=== PATIENT | male | born 1965 | race Caucasian/White ===

== ENCOUNTER 2020-08-05 23:57 | Emergency (ER) | payer BC, MEDICAID ==
[~2020-08-05] VITALS: Ht 185.4 cm; Wt 116.0 kg
[~2020-08-05 23:57] MED LIST: ALBU8.5H6 INH; ASPI325T8 PO; BUDE10.2 INH; CLOP75TA57 PO; CRESTOR40 MG PO; GABA-587 PO; ISOS30TA; MELA10CA PO; RANI-376 PO; TRAZ300T2 PO
--- NOTE | 2020-08-06 00:13 | PHYS DOC ---
Past History Past Medical History: Arrhythmia, CAD, DC Past Medical History COVID , - Oxygen dependent 2 lit. Past Surgical History: Knee Replacement, Pacemaker, Other Past Surgical History Shoulder Rt x 2, Hx. trauma repair- Lt arm Smoking: Non-smoker Alcohol Use: None Drug Use: None General Adult EDM: Chief Complaint: SHOULDER INJURY HPI: HPI: ". I was helping a relative lay down some stalks for bedding.. and this high pressure hydraulic line had a pinhole leak and it got me in my right shoulder... It is the same shoulder I have had surgical repair twice on... This area is really tender and swollen... Patient is a 54 year old male who presents with above hx and complaints right shoulder hydraulic pressure injection injury. Patient has approximately 6 to 8 cm circular area with 2 injection-like clemens. Area is somewhat erythemic and very tender to touch. There is older surgery scars from 2 surgical repairs of rotator cuff. Patient states injury just occurred. Patient is visiting from [place]. Patient has past medical history of coronary artery disease and pacer placement for dysrhythmia 2 yrs ago.. Patient has a past traumatic history of a machine entanglement of left arm. Requiring surgical repair. Patient has history of Covid in April and as sequela has been oxygen dependent. Patient reports recent travel from [place] to his relatives here locally. Patient denies any history of immunosuppression.. Patient states his last tetanus approximately 2 years ago. Review of Systems: Review of Systems: Constitutional: Denies fever or chills Eyes: Denies change in visual acuity HENT: Denies nasal congestion or sore throat Respiratory: Denies cough or shortness of breath Cardiovascular: Denies chest pain or edema GI: Denies abdominal pain, nausea, vomiting, bloody stools or diarrhea : Denies dysuria Musculoskeletal: Complains of right shoulder pain from hydraulic injection Integument: Denies rash Neurologic: Denies headache, focal weakness or sensory changes Endocrine: Denies polyuria or polydipsia Lymphatic: Denies swollen glands Psychiatric: Denies depression or anxiety Family History: Family History: Noncontributory to presentation Current Medications: Current Meds: See nursing for home meds Allergies: Allergies: Allergies Coded Allergies Type Severity Reaction Last Updated Verified acetaminophen Allergy Severe Anaphylaxis 08/06/20 Yes ibuprofen Allergy Severe Anaphylaxis 08/06/20 Yes ketorolac Allergy Severe Anaphylaxis 08/06/20 Yes naproxen Allergy Severe Anaphylaxis 08/06/20 Yes chicken derived Allergy Intermediate CHICKEN AND TURKEY 08/06/20 Yes fish derived Allergy Intermediate FISH 08/06/20 Yes Physical Exam: PE: Constitutional: Moderate acute distress, non-toxic appearance. [] HENT: Normocephalic, atraumatic, bilateral external ears normal, oropharynx moist, no oral exudates, nose normal. [] Eyes: PERRLA, EOMI, conjunctiva normal, no discharge. [] Neck: Normal range of motion, no tenderness, supple, no stridor. [] Cardiovascular:Heart rate regular rhythm, no murmur [. PMI to left Lungs & Thorax: Bilateral breath sounds equal apex with scattered wheezes and crackles bilaterally on auscultation [. Patient has] pacer scar on left Abdomen: Bowel sounds normal, soft, no tenderness, no masses, no pulsatile masses. Obese. Old surgical scar Skin: Warm, dry, no erythema, no rash. Right shoulder area has 2 injection clemens. An area of approximately 8 cm that is injected Back: No tenderness, no CVA tenderness. [] Extremities: No tenderness, no cyanosis, no clubbing, ROM intact, no edema. Arthritic changes. Except findings, complaints in right shoulder as per HPI. Extensive scarring both arms. Neurologic: Alert and oriented X 3, moves all extremities on request, does have distal sensory., no focal deficits noted. [] Psychologic: Affect anxious, judgement normal, mood normal. [] EKG: EKG: My interpretation of EKG shows a sinus rhythm at 80 bpm. There is left axis. No patient PACs appreciated on current EKG. there is some wavering baseline due to movement. But no contralateral changes consistent with STEMI [] Radiology/Procedures: Radiology/Procedures: [][address] [address] IMAGING REPORT Signed PATIENT: FÉLIX CONTE ACCOUNT: [id number] : 1965 LOCATION: ER AGE: 54 SEX: M EXAM STATUS: REG ER ORD. PHYSICIAN: MYRIAM TERRY MD REASON: oil injection Rt. shoulder PROCEDURE: SHOULDER 2+V RIGHT EXAM: 1. CT right shoulder without contrast. 2. Right shoulder 3 views. 3. Chest one view. HISTORY: Trauma, high pressure injection injury of industrial grease. TECHNIQUE: 3 views of the right shoulder and a frontal view of the chest are obtained. CT of the right shoulder was performed without intravenous contrast. One or more of the following individualized dose reduction techniques were utilized for this examination: 1. Automated exposure control. 2. Adjustment of the mA and/or kV according to patient size. 3. Use of iterative reconstruction technique. COMPARISON: Today's radiograph. FINDINGS: One tiny focus of subcutaneous gas is noted on axial image 54. This measures <2 mm. No additional subcutaneous gas, macroscopic skin injury, or macroscopic soft tissue collection is present. There is subcutaneous scarring along the anterior and lateral aspect of the right shoulder, likely reflecting prior surgery. No fractures are identified. There are changes of rotator cuff repair. The rot ator cuff appears grossly intact though atrophic. CT sensitivity for rotator cuff tears is limited. There is fatty atrophy of the supraspinatus, infraspinatus and subscapularis muscles. Glenohumeral joint spaces and alignment are maintained. The acromioclavicular joint is unremarkable for patient age. The acromion is type II. There are interstitial and groundglass opacities throughout the visualized portions of the right lung. These are better appreciated by CT than plain radiographs. By radiographs, there appears to be only mild bibasilar atelectasis. There is no pneumothorax or pleural effusion. The heart is not enlarged. A coronary stent is noted on the left. A left-sided pacer/defibrillator has its leads in the right atrium and right ventricle. IMPRESSION: 1. One tiny focus of subcutaneous gas is noted. No macroscopic soft tissue collection. 2. Groundglass and interstitial opacities throughout the right lung may reflect atypical pneumonia or interstitial lung disease. Correlate for history of recent infection. Electronically signed by: Darrick Song MD (08/06/2020 3:26 AM) [facility] DICTATED AND SIGNED BY: MAE SONG MD DATE: 08/06/20311 CC: MYRIAM TERRY MD; NON,STAFF ~MTH0 0 Heart Score: HEART Score for Chest Pain: HEART Score for Chest Pain Response (Comments) Value History Moderately Suspicious 1 ECG Nonspecific Repolarizatio 1 Age >45 - < 65 1 Risk Factors 1 or 2 Risk Factors 1 Troponin >1-<3x Normal Limit 1 Total 5 Risk Factors: Risk Factors: DM, Current or recent (<one month) smoker, HTN, HLP, family history of CAD, obesity. Risk Scores: Score 0 - 3: 2.5% MACE over next 6 weeks - Discharge Home Score 4 - 6: 20.3% MACE over next 6 weeks - Admit for Clinical Observation Score 7 - 10: 72.7% MACE over next 6 weeks - Early Invasive Strategies Course & Med Decision Making: Course & Med Decision Making Pertinent Labs and Imaging studies reviewed. (See chart for details) Discussed presentation, testing and tx plan with Dr. Leticia gómez- at [facility], 0045- Advised pt. should go to burn center, or trauma center for surgical exploration. Discussed presentation, testing and tx plan with transfer- 0230 hrs. student services coordinator advised the transfer will be discussed attending. Pt. accepted at - Dr. Delgado. Impression: 1. Rt. Shoulder Injection- High Pressure hydraulic line 2. Post COVID Apr 23, sequela of oxygen dependent 3. History of coronary artery disease and dysrhythmia [] Dragon Disclaimer: Dragon Disclaimer: This electronic medical record was generated, in whole or in part, using a voice recognition dictation system. Dragon Disclaimer This chart was dictated in whole or in part using Voice Recognition software in a busy, high-work load, and often noisy Emergency Department environment. It may contain unintended and wholly unrecognized errors or omissions. MYRIAM TERRY MD Aug 06, 2020 00:13
[2020-08-06] MEDS ORDERED: MORPHINE SULFATE 10 MG/ML SYRINGE. SQ ONE ×2 (00:45→03:45)
[2020-08-06] MEDS ORDERED: IV RINGERS SOLUTION,LACTATED 1,000 ML IV SCH (01:00)
[2020-08-06 01:25] LABS: BASO # 0.1 x10^3/uL (0.0-0.2); BASO % 1 % (0-3); EOS # 0.1 x10^3/uL (0.0-0.7); EOS % 2 % (0-3); HEMATOCRIT 43.2 % (39.0-53.0); HEMOGLOBIN 14.4 g/dL (13.0-17.5); LYMPH # 1.1 x10^3/uL (1.0-4.8); LYMPH % 19 % (24-48); MEAN CORPUSCULAR HEMOGLOBIN 31 pg (25-35); MEAN CORPUSCULAR HGB CONC 33 g/dL (31-37); MEAN CORPUSCULAR VOLUME 94 fL (79-100); MONO # 0.5 x10^3/uL (0.0-1.1); MONO % 9 % (0-9); NEUT # 4.1 x10^3uL (1.8-7.7); NEUT % 69 % (31-73); PLATELET COUNT 251 x10^3/uL (140-400); RED BLOOD COUNT 4.62 x10^6/uL (4.30-5.70); RED CELL DISTRIBUTION WIDTH 12.9 % (11.5-14.5)
[2020-08-06 01:32] LABS: CALCIUM 8.7 mg/dL (8.5-10.1); CREATININE 1.2 mg/dL (0.7-1.3); GFR 62.9
--- NOTE | 2020-08-06 01:36 | EKG ---
[facility] ED [facility] [address] [place] [id number] Test Date: 2020-08-06 Test Time: 00:54:14 Pat Name: FÉLIX CONTE Department: Room: Gender: M Hr Operations Advisor: Nelly : 1965 Requested By: MYRIAM TERRY Order Number: [id number] Reading MD: Measurements Intervals [place] Rate: 80 P: 34 MS: 198 QRS: -17 QRSD: 100 T: 142 QT: 394 QTc: 458 Interpretive Statements SINUS RHYTHM LEFTWARD AXIS R-S TRANSITION ZONE IN V LEADS DISPLACED TO THE LEFT QRS(T) CONTOUR ABNORMALITY CONSIDER ANTEROLATERAL MYOCARDIAL DAMAGE POSSIBLY ABNORMAL ECG RI6.02 No previous ECG available for comparison
[2020-08-06 01:38] LABS: ALBUMIN 3.4 g/dL (3.4-5.0); DIRECT BILIRUBIN 0.1 mg/dL (0.0-0.2); TOTAL BILIRUBIN 0.2 mg/dL (0.2-1.0); TOTAL PROTEIN 7.2 g/dL (6.4-8.2)
[2020-08-06 02:48] VITALS: BP 142/51
--- NOTE | 2020-08-06 03:28 | RAD ---
EXAM: 1. CT right shoulder without contrast. 2. Right shoulder 3 views. 3. Chest one view. HISTORY: Trauma, high pressure injection injury of industrial grease. TECHNIQUE: 3 views of the right shoulder and a frontal view of the chest are obtained. CT of the [facility] t shoulder was performed without intravenous contrast. One or more of the following individualized do se reduction techniques were utilized for this examination: 1. Automated exposure control. 2. Adjustment of the mA and/or kV according to patient size. 3. Use of iterative reconstruction technique. COMPARISON: Today's radiograph. FINDINGS: One tiny focus of subcutaneous gas is noted on axial image 54. This measures <2 mm. No [place] tional subcutaneous gas, macroscopic skin injury, or macroscopic soft tissue collection is present. T here is subcutaneous scarring along the anterior and lateral aspect of the right shoulder, likely ref lecting prior surgery. No fractures are identified. There are changes of rotator cuff repair. The rotator cuff appears gross ly intact though atrophic. CT sensitivity for rotator cuff tears is limited. There is fatty atrophy o f the supraspinatus, infraspinatus and subscapularis muscles. Glenohumeral joint spaces and alignment are maintained. The acromioclavicular joint is unremarkable f or patient age. The acromion is type II. There are interstitial and groundglass opacities throughout the visualized portions of the right lung . These are better appreciated by CT than plain radiographs. By radiographs, there appears to be only mild bibasilar atelectasis. There is no pneumothorax or pleural effusion. The heart is not enlarged. A coronary stent is noted on the left. A left-sided pacer/defibrillator has its leads in the right a trium and right ventricle. IMPRESSION: 1. One tiny focus of subcutaneous gas is noted. No macroscopic soft tissue collection. 2. Groundglass and interstitial opacities throughout the right lung may reflect atypical pneumonia or interstitial lung disease. Correlate for history of recent infection. Electronically signed by: Darrick Song MD (08/06/2020 3:26 AM) [facility]
== END 2020-08-06 03:39 | disposition short-term general hospital (02) ==
LOC: ER 23:57
DX: M25.511 Pain in right shoulder (principal); I25.10 Atherosclerotic heart disease of native coronary artery without angina pectoris; I25.2 Old myocardial infarction; Z98.890 Other specified postprocedural states; Z95.0 Presence of cardiac pacemaker; Z88.8 Allergy status to other drugs, medicaments and biological substances; Z88.6 Allergy status to analgesic agent; Z91.013 Allergy to seafood
CPT/HCPCS: 36415; 71045; 73030; 73200; 80048; 80076; 82550; 83690; 83735; 84484; 85025; 85379; 85610; 85730; 93005; 96360; 96372; 99285; J2270; J7120